=== PATIENT | female | born 1975 ===

== ENCOUNTER 2017-08-03 17:37 | Emergency (ER) | payer MEDICAID ==
[2017-08-03 17:37] VITALS: BMI 29.0
[2017-08-03 17:43] VITALS: BP 153/110; PULSE 85; RESP 18; TEMP 98.2; O2SAT 100
[2017-08-03] MEDS ORDERED: Sodium Chloride 0.9% 1,000 ML IV STA (18:15)
[2017-08-03] MEDS ORDERED: Morphine 4 MG/ML VIAL IV STA (18:15)
--- NOTE | 2017-08-03 18:18 | ED PDOC ---
HPI: Back Time Seen by Provider: 08/03/17 18:00 Chief Complaint (Nursing): Back Pain Chief Complaint (Provider): Back Pain History Per: Patient History/Exam Limitations: no limitations Onset/Duration Of Symptoms: Days (x6) Current Symptoms Are (Timing): Still Present Additional Complaint(s): 42 year old female who presents to the emergency department with a complaint of lower back pain ongoing for 6 days. Denied any fever, chills, difficulty urinating or bloody urine. Patient stated her urologist found kidney inflammation on an ultrasound 2 months ago with no known source. She has been taking Motrin with no relief of symptoms. PMD: none provided Past Medical History Reviewed: Historical Data, Nursing Documentation, Vital Signs Vital Signs: Last Vital Signs Temp 98.2 F 08/03/17 17:39 Pulse 85 08/03/17 17:39 Resp 18 08/03/17 17:39 BP 153/110 H 08/03/17 17:39 Pulse Ox 100 08/03/17 17:39 - Medical History PMH: No Chronic Diseases - Surgical History Surgical History: No Surg Hx, - Family History Family History: States: Unknown Family Hx - Home Medications Home Medications: Ambulatory Orders Medication Instructions Recorded No Known Home Meds 08/16/15 Tizanidine Hydrochloride 4 mg PO Q6 PRN #20 tab 08/16/15 [Tizanidine HCl] Tramadol Hydrochloride [Tramadol 50 mg PO Q6H PRN #20 tab 08/16/15 HCl] oxyCODONE/Acetaminophen [Percocet 1 ea PO Q6H PRN #15 tab 08/03/17 5/325 mg Tab] - Allergies Allergies/Adverse Reactions: Allergies Allergy/AdvReac Type Severity Reaction Status Date / Time No Known Allergies Allergy Verified 08/16/15 17:59 Review of Systems ROS Statement: Except As Marked, All Systems Reviewed And Found Negative Constitutional: Negative for: Fever, Chills Genitourinary Female: Negative for: Dysuria, Hematuria Musculoskeletal: Positive for: Back Pain (lower) Physical Exam - Reviewed Nursing Documentation Reviewed: Yes Vital Signs Reviewed: Yes - Physical Exam Appears: Positive for: Non-toxic, Uncomfortable Head Exam: Positive for: ATRAUMATIC, NORMAL INSPECTION, NORMOCEPHALIC Skin: Positive for: Normal Color Eye Exam: Positive for: Normal appearance ENT: Positive for: Normal ENT Inspection Neck: Positive for: Normal Cardiovascular/Chest: Positive for: Regular Rate, Rhythm, Chest Non Tender Respiratory: Positive for: Normal Breath Sounds. Negative for: Decreased Breath Sounds, Respiratory Distress Back: Positive for: Vertebral Tenderness (generalized lower back). Negative for : Normal Inspection, L CVA Tenderness, R CVA Tenderness Neurologic/Psych: Positive for: Alert (x3), Oriented - Laboratory Results Result Diagrams: 08/03/17 18:39 - ECG O2 Sat by Pulse Oximetry: 100 (RA) Pulse Ox Interpretation: Normal Medical Decision Making Medical Decision Making: Initial Impression: Lowe back pain Initial Plan: * CMP * CBC * Morphine 4mg IV * NS 1,000ml IV per 1,000mls/hr * Urine culture * Urinalysis Scribe Attestation: Documented by Felicia Navarro, acting as a scribe for Ольга Sánchez PA-C. Provider Scribe Attestation: All medical record entries made by the Scribe were at my direction and personally dictated by me. I have reviewed the chart and agree that the record accurately reflects my personal performance of the history, physical exam, medical decision making, and the department course for this patient. I have also personally directed, reviewed, and agree with the discharge instructions and disposition. Disposition - Clinical Impression Clinical Impression: Back pain - Patient ED Disposition Is Patient to be Admitted: No Counseled Patient/Family Regarding: Diagnosis, Need For Followup, Rx Given - Disposition Disposition: Routine/Home Disposition Time: 19:03 Condition: STABLE Prescriptions: oxyCODONE/Acetaminophen [Percocet 5/325 mg Tab] 1 ea PO Q6H PRN #15 tab PRN Reason: Pain, Severe (8-10) Instructions: Acute Low Back Pain (ED) Forms: [employer] (Hungarian)
[2017-08-03 18:43] LABS: RBC URINE 1 /hpf (0-3); URINE BACTERIA RARE (<OCC); URINE BILIRUBIN NEGATIVE (NEGATIVE); URINE BLOOD NEGATIVE (NEGATIVE); URINE COLOR STRAW (YELLOW); URINE GLUCOSE (UA) NEG (Normal); URINE KETONE NEGATIVE (NEGATIVE); URINE LEUKOCYTE ESTERASE NEG Leu/uL (Negative); URINE PROTEIN NEGATIVE (NEGATIVE); URINE UROBILINOGEN 0.2-1.0 mg/dL (0.2-1.0); WBC URINE < 1 /hpf (0-5)
[2017-08-03 18:47] LABS: HEMATOCRIT 37.5 % (34.0-47.0); MEAN CELL VOLUME 80.6 fl (81.0-99.0); MEAN CORPUSCULAR HEMOGLOBIN 25.7 pg (27.0-31.0); MEAN CORPUSCULAR HGB CONC 31.9 g/dL (33.0-37.0); RED CELL DISTRIBUTION WIDTH 14.2 % (11.5-14.5); WHITE BLOOD COUNT 9.8 K/uL (4.8-10.8)
[2017-08-03 18:53] LABS: ALKALINE PHOSPHATASE 53 U/L (38-126); ALT/SGPT 36 U/L (9-52); AST/SGOT 31 U/L (14-36); BILIRUBIN,TOTAL 0.4 mg/dl (0.2-1.3); BLOOD UREA NITROGEN 12 mg/dl (7-17); CALCIUM 9.2 mg/dL (8.4-10.2); CARBON DIOXIDE 26 mmol/L (22-30); CHLORIDE 105 mmol/L (98-107); GFR AFRICAN-AMERICAN > 60; GLUCOSE,RANDOM 81 mg/dL (65-105); POTASSIUM 3.5 MMOL/L (3.6-5.0); SODIUM 140 mmol/l (132-148); TOTAL PROTEIN 8.4 G/DL (6.3-8.2)
[2017-08-03 18:56] LABS: ALB/GLOB RATIO 1.1 (1.0-2.1)
[2017-08-03] MEDS ORDERED: Morphine 4 MG/ML VIAL ONE (18:57)
--- NOTE | 2017-08-03 19:08 | CT ---
PROCEDURE: CT Abdomen and Pelvis without intravenous contrast HISTORY: back pain, hx of "inflamed kidneys" COMPARISON: None. TECHNIQUE: Unenhanced study. Neither oral nor intravenous contrast administered. Sensitivity and specificity for acute inflammatory processes limited by the absence of oral and intravenous contrast. Less the diagnosis of pyelonephritis and ureteritis is limited with respect to sensitivity and specificity. Radiation dose: Total exam DLP = 1141.19 print mGy-cm. This CT exam was performed using one or more of the following dose reduction techniques: Automated exposure control, adjustment of the mA and/or kV according to patient size, and/or use of iterative reconstruction technique. FINDINGS: LOWER THORAX: Unremarkable. LIVER: Unremarkable. No gross lesion or ductal dilatation. GALLBLADDER AND BILE DUCTS: Unremarkable. PANCREAS: Unremarkable. No gross lesion or ductal dilatation. SPLEEN: Unremarkable. ADRENALS: Unremarkable. No mass. KIDNEYS AND URETERS: Unremarkable. No hydronephrosis. No solid mass. VASCULATURE: Unremarkable. No aortic aneurysm. BOWEL: Unremarkable. No obstruction. No gross mural thickening. APPENDIX: Unremarkable. Normal appendix. PERITONEUM: Unremarkable. No free fluid. No free air. LYMPH NODES: Unremarkable. No enlarged lymph nodes. BLADDER: Unremarkable. REPRODUCTIVE: Unremarkable anteverted uterus. Questionable follicular cyst left hemipelvis. BONES: No acute fracture. OTHER FINDINGS: None. IMPRESSION: No significant or acute findings to account for/ related to the clinical presentation. Additional benign and/or incidental findings described above.
== END 2017-08-03 19:36 | disposition home or self-care (01) ==
LOC: H.ER 17:37
DX: M54.5 Low back pain (principal)
CPT/HCPCS: 74176; 80053; 81003; 81025; 85027; 87086; 96374; 99282; J2270; J7040

== ENCOUNTER 2017-09-05 18:34 | Emergency (ER) | payer MEDICAID ==
[2017-09-05 18:34] VITALS: BMI 29.0
[2017-09-05 18:39] VITALS: O2SAT 100
[2017-09-05 20:33] LABS: BASO % 0.5 % (0.0-2.0); EOS % 0.4 % (0.0-4.0); HEMOGLOBIN 11.8 g/dL (12.0-16.0); LYMPH # 1.6 K/uL (1.0-4.3); LYMPH % 24.3 % (20.0-40.0); MEAN CORPUSCULAR HEMOGLOBIN 25.3 pg (27.0-31.0); MEAN CORPUSCULAR HGB CONC 31.6 g/dL (33.0-37.0); MONO # 0.5 K/uL (0.0-0.8); MONO % 7.3 % (0.0-10.0); NEUT # 4.5 K/uL (1.8-7.0); NEUT % 67.5 % (50.0-75.0); RBC 4.66 Mil/uL (3.80-5.20); RED CELL DISTRIBUTION WIDTH 14.7 % (11.5-14.5); WHITE BLOOD COUNT 6.7 K/uL (4.8-10.8)
--- NOTE | 2017-09-05 20:33 | ED PDOC ---
HPI: Hypertension/Hypotension Time Seen by Provider: 09/05/17 19:11 Chief Complaint (Nursing): Chest Pain Chief Complaint (Provider): Vomiting and HTN History Per: Patient History/Exam Limitations: no limitations Onset/Duration Of Symptoms: Days (x2) Current Symptoms Are (Timing): Still Present Additional Complaint(s): 42 year old female with a past medical history of HTN in and preeclampsia, who presents to the ED with vomiting and HTN x2 days. Reports that she developed body aches and fatigue with associated left chest and shoulder pain yesterday. States chest and shoulder pain have since resolved. States she is concerned after a home blood pressure reading of 198/111. Denies HTN when not . Also reports that shes been very stressed recently because she has 2 children, is a single mother, and has had financial issues. Denies stomach pain and reports some midline back pain. PMD: martin Schofield Past Medical History Reviewed: Historical Data, Nursing Documentation, Vital Signs Vital Signs: Last Vital Signs Temp 98.5 F 09/05/17 18:37 Pulse 85 09/05/17 18:37 Resp 16 09/05/17 18:37 BP 143/95 H 09/05/17 18:37 Pulse Ox 100 09/05/17 18:37 - Medical History PMH: HTN (in ) Other PMH: Preeclampsia - Surgical History Surgical History: Other surgeries: TMJ surgery - Family History Family History: States: Hypertension - Home Medications Home Medications: Ambulatory Orders Medication Instructions Recorded No Known Home Meds 08/16/15 Tizanidine Hydrochloride 4 mg PO Q6 PRN #20 tab 08/16/15 [Tizanidine HCl] Tramadol Hydrochloride [Tramadol 50 mg PO Q6H PRN #20 tab 08/16/15 HCl] oxyCODONE/Acetaminophen [Percocet 1 ea PO Q6H PRN #15 tab 08/03/17 5/325 mg Tab] Ondansetron ODT [Zofran ODT] 1 odt PO Q6 PRN #20 odt 09/05/17 - Allergies Allergies/Adverse Reactions: Allergies Allergy/AdvReac Type Severity Reaction Status Date / Time No Known Allergies Allergy Verified 09/05/17 18:37 Review of Systems ROS Statement: Except As Marked, All Systems Reviewed And Found Negative (as per HPI) Physical Exam - Reviewed Nursing Documentation Reviewed: Yes Vital Signs Reviewed: Yes - Physical Exam Appears: Positive for: Non-toxic, In Acute Distress (tearful) Head Exam: Positive for: ATRAUMATIC, NORMOCEPHALIC Skin: Positive for: Warm, Dry Eye Exam: Positive for: EOMI, PERRL ENT: Negative for: Pharyngeal Erythema, Tonsillar Exudate Neck: Positive for: Painless ROM, Supple Cardiovascular/Chest: Positive for: Regular Rate, Rhythm. Negative for: Murmur Respiratory: Positive for: Normal Breath Sounds. Negative for: Wheezing Gastrointestinal/Abdominal: Positive for: Soft. Negative for: Tenderness Back: Positive for: Normal Inspection. Negative for: Decreased ROM Extremity: Positive for: Normal ROM. Negative for: Deformity Lymphatic: Negative for: Adenopathy Neurologic/Psych: Positive for: Alert, Mood/Affect (anxious mood, sad affect, denies suicidal ideation). Negative for: Motor/Sensory Deficits - Laboratory Results Result Diagrams: 09/05/17 20:15 09/05/17 20:15 - ECG O2 Sat by Pulse Oximetry: 100 (RA) Pulse Ox Interpretation: Normal Medical Decision Making Medical Decision Making: Time: 20:15 Initial Impression: HTN. Differentials include electrolyte abnormalities, , stress, and anxiety Plan: --EKG --BNP --CMP --Magnesium --Phosphorus --TSH --Troponin I --ED urine dipstick --ED urine --CBC w/ differential --D Dimer --Chest X-Ray 2 views --Reevaluation Accession No. 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 no. Patient Name: HILDA MCCORMICK Pt. Address: [address] [place] [address]. Rec #: [id number] [place] [address]: Ruddy AWAD, Katarzyna Cartwright Pt Order Location: [facility] : 1975 Female Age: 42 Order #: [id number] Reason for exam: chest pain CT Scan ANGIO CHEST PE PROTOCOL Exam Date: 09/05/17 This imaging exam was performed at [facility] EXAM: CT Angiography Chest With Intravenous Contrast CLINICAL HISTORY: 42 years old, female; Pain; Chest pain; Left-sided chest pain TECHNIQUE: Axial computed tomographic angiography images of the chest with intravenous contrast using pulmonary embolism protocol. All CT scans at this facility use one or more dose reduction techniques, viz.: automated exposure control; ma/kV adjustment per patient size (including targeted exams where dose is matched to indication; i.e. head); or iterative reconstruction technique. MIP reconstructed images were created and reviewed. Coronal and sagittal reformatted images were created and reviewed. CONTRAST: 90 mL of [id number] administered intravenously. COMPARISON: No relevant prior studies available. FINDINGS: Limitations: Suboptimal timing of bolus. Pulmonary arteries: No definite pulmonary embolism. Aorta: No aneurysm. No dissection. Lungs: No consolidation. 0.3 cm RIGHT middle lobe nodule. Pleural space: No significant effusion. No pneumothorax. Heart: No cardiomegaly. No significant pericardial effusion. Bones/joints: No acute fracture. Soft tissues: Unremarkable. Lymph nodes: No pathologically enlarged lymph nodes. IMPRESSION: 1. No definite CT evidence of pulmonary embolism. 2. Pulmonary nodules. For low-risk patients, no follow-up is necessary. For high-risk patients (smoking history or other known risk factors) an optional CT at 12 months could be performed. Dictated By: Tacho Navarrete MD Dictated Date/Time: 09/05/172225 Signed By: Tacho Navarrete MD Date Signed: 2225 Transcribed By: CRISPIN Transcribe Date/Time : 09/05/172225 [id number] 1045p Labs unremarkable Pt feels better, bp improved without intervention. Scribe Attestation: Documented by Chuck Ramos, acting as a scribe for Katarzyna Fox MD. Provider Scribe Attestation: All medical record entries made by the Scribe were at my direction and personally dictated by me. I have reviewed the chart and agree that the record accurately reflects my personal performance of the history, physical exam, medical decision making, and the department course for this patient. I have also personally directed, reviewed, and agree with the discharge instructions and disposition. Disposition - Clinical Impression Clinical Impression: Vomiting, Hypertension, Stress Counseled Patient/Family Regarding: Studies Performed, Diagnosis, Need For Followup, Rx Given - Disposition Referrals: Martin Schofield MD [IM] - 09/06/17 ([facility] [Outside] Disposition: Routine/Home Disposition Time: 22:50 Condition: IMPROVED Prescriptions: Ondansetron ODT [Zofran ODT] 1 odt PO Q6 PRN #20 odt PRN Reason: Nausea/Vomiting Instructions: Stress (ED), Acute Nausea and Vomiting (ED) Forms: [facility] ED School/Work Excuse Print Language: CHILEAN
[2017-09-05 20:41] LABS: ALB/GLOB RATIO 1.1 (1.0-2.1); ALBUMIN 4.1 g/dL (3.5-5.0); ALT/SGPT 32 U/L (9-52); AST/SGOT 26 U/L (14-36); BLOOD UREA NITROGEN 15 mg/dl (7-17); CALCIUM 9.2 mg/dL (8.4-10.2); GFR AFRICAN-AMERICAN > 60; GFR NON-AFRICAN AMERICAN > 60
[2017-09-05 20:50] LABS: B-TYPE NATRIURETIC PEPTIDE 17.7 pg/ml (0-450)
[2017-09-05] MEDS ORDERED: Iodixanol 320 MG/ML 100 ML BOTTLE IV ONE (21:17)
[2017-09-05] MEDS ORDERED: Sodium Chloride 0.9% 50 ML IV ONE (21:18)
--- NOTE | 2017-09-05 22:27 | CT ---
EXAM: CT Angiography Chest With Intravenous Contrast CLINICAL HISTORY: 42 years old, female; Pain; Chest pain; Left-sided chest pain TECHNIQUE: Axial computed tomographic angiography images of the chest with intravenous contrast using pulmonary embolism protocol. All CT scans at this facility use one or more dose reduction techniques, viz.: automated exposure control; ma/kV adjustment per patient size (including targeted exams where dose is matched to indication; i.e. head); or iterative reconstruction technique. MIP reconstructed images were created and reviewed. Coronal and sagittal reformatted images were created and reviewed. CONTRAST: 90 mL of [id number] administered intravenously. COMPARISON: No relevant prior studies available. FINDINGS: Limitations: Suboptimal timing of bolus. Pulmonary arteries: No definite pulmonary embolism. Aorta: No aneurysm. No dissection. Lungs: No consolidation. 0.3 cm RIGHT middle lobe nodule. Pleural space: No significant effusion. No pneumothorax. Heart: No cardiomegaly. No significant pericardial effusion. Bones/joints: No acute fracture. Soft tissues: Unremarkable. Lymph nodes: No pathologically enlarged lymph nodes. IMPRESSION: 1. No definite CT evidence of pulmonary embolism. 2. Pulmonary nodules. For low-risk patients, no follow-up is necessary. For high-risk patients (smoking history or other known risk factors) an optional CT at 12 months could be performed.
[2017-09-05 22:47] VITALS: BP 121/73; PULSE 63; RESP 18; TEMP 98.4
--- NOTE | 2017-09-06 11:32 | RAD ---
HISTORY: Left chest pressure COMPARISON: No prior. TECHNIQUE: Chest PA and lateral FINDINGS: LUNGS: No active pulmonary disease. PLEURA: No significant pleural effusion identified. No pneumothorax apparent. CARDIOVASCULAR: Normal. OSSEOUS STRUCTURES: No significant abnormalities. VISUALIZED UPPER ABDOMEN: Normal. OTHER FINDINGS: None. IMPRESSION: No active disease.
--- NOTE | 2017-09-06 14:22 | CARD ---
APPROVED REPORT EKG Measurement Heart [id number] <Conclusion> Normal sinus rhythm Normal ECG
== END 2017-09-06 05:47 | disposition home or self-care (01) ==
LOC: H.ER 18:34
DX: I10 Essential (primary) hypertension (principal)
CPT/HCPCS: 71046; 71275; 80053; 81025; 83735; 83880; 84100; 84443; 84484; 85025; 85378; 93005; 99282; Q9967

== ENCOUNTER 2018-12-04 09:09 | Emergency (ER) | payer MEDICAID ==
[2018-12-04 09:09] VITALS: BMI 29.0
[2018-12-04] MEDS ORDERED: DiphenhydrAMINE 50 mg/ml Inj IVP STA (09:40)
[2018-12-04] MEDS ORDERED: Sodium Chloride 0.9% 1,000 ML IV STA (09:40)
[2018-12-04] MEDS ORDERED: DiphenhydrAMINE 50 mg/ml Inj ONE (09:46)
[2018-12-04 10:22] LABS: BASO % 0.6 % (0.0-2.0); EOS % 0.5 % (0.0-4.0); HEMOGLOBIN 10.7 g/dL (12.0-16.0); LYMPH # 1.4 K/uL (1.0-4.3); MEAN CELL VOLUME 73.7 fl (81.0-99.0); MEAN CORPUSCULAR HEMOGLOBIN 23.3 pg (27.0-31.0); MEAN CORPUSCULAR HGB CONC 31.6 g/dL (33.0-37.0); MEAN PLATELET VOLUME 10.1 fl (7.2-11.7); MONO # 0.3 K/uL (0.0-0.8); MONO % 6.6 % (0.0-10.0); NEUT # 3.4 K/uL (1.8-7.0); NEUT % 65.3 % (50.0-75.0); NRBC % 0.1 % (0.0-0.0); RBC 4.6 Mil/uL (3.80-5.20); RED CELL DISTRIBUTION WIDTH 15.8 % (11.5-14.5); WHITE BLOOD COUNT 5.2 K/uL (4.8-10.8)
[2018-12-04 10:36] LABS: ALB/GLOB RATIO 1.2 (1.0-2.1); ALBUMIN 4.5 g/dL (3.5-5.0); ALT/SGPT 31 U/L (9-52); AST/SGOT 28 U/L (14-36); BLOOD UREA NITROGEN 10 mg/dl (7-17); CALCIUM 9.6 mg/dL (8.4-10.2); GFR NON-AFRICAN AMERICAN > 60
[2018-12-04 10:48] VITALS: RESP 19; O2SAT 98
--- NOTE | 2018-12-04 11:17 | ED PDOC ---
HPI: Allergic Reaction Time Seen by Provider: 12/04/18 09:20 Chief Complaint (Nursing): Abnormal Skin Integrity History Per: Patient (Rubin is here because of itchy rashes that started yesterday afternoon. She took Benadryl 25mg with some relief. They recurred this morning and caused her to be alarmed. As a result, she noted palpitations but denies shortness of breath or difficulty swallowing.) Past Medical History Reviewed: Historical Data Vital Signs: Last Vital Signs Temp 97 F L 12/04/18 10:47 Pulse 64 12/04/18 10:47 Resp 19 12/04/18 10:47 BP 125/76 12/04/18 10:47 Pulse Ox 98 12/04/18 10:47 RINA Report Viewed: No - Medical History PMH: HTN (in ) - Surgical History Surgical History: No Surg Hx, - Family History Family History: States: No Known Family Hx, Hypertension - Home Medications Home Medications: Ambulatory Orders Medication Instructions Recorded No Known Home Meds 08/16/15 Tizanidine Hydrochloride 4 mg PO Q6 PRN #20 tab 08/16/15 [Tizanidine HCl] Tramadol Hydrochloride [Tramadol 50 mg PO Q6H PRN #20 tab 08/16/15 HCl] oxyCODONE/Acetaminophen [Percocet 1 ea PO Q6H PRN #15 tab 08/03/17 5/325 mg Tab] Ondansetron ODT [Zofran ODT] 1 odt PO Q6 PRN #20 odt 09/05/17 DiphenhydrAMINE [Benadryl] 50 mg PO Q6H PRN #50 cap 12/04/18 Famotidine [Pepcid] 20 mg PO BID #30 tab 12/04/18 - Allergies Allergies/Adverse Reactions: Allergies Allergy/AdvReac Type Severity Reaction Status Date / Time No Known Allergies Allergy Verified 09/05/17 18:37 Review of Systems ROS Statement: Except As Marked, All Systems Reviewed And Found Negative Constitutional: Negative for: Fever, Chills Cardiovascular: Positive for: Chest Pain Respiratory: Negative for: Cough, Shortness of Breath, SOB with Exertion Gastrointestinal: Negative for: Nausea, Vomiting, Abdominal Pain, Diarrhea Genitourinary Female: Negative for: Dysuria Physical Exam - Reviewed Nursing Documentation Reviewed: Yes Vital Signs Reviewed: Yes - Physical Exam Appears: Positive for: Well, Non-toxic, No Acute Distress Head Exam: Positive for: ATRAUMATIC, NORMAL INSPECTION, NORMOCEPHALIC Skin: Positive for: Normal Color, Warm, Rash (scattered mildly indurated/urticarial lesions most prominent on the right upper lip. ) Eye Exam: Positive for: EOMI, Normal appearance, PERRL ENT: Positive for: Normal ENT Inspection Neck: Positive for: Normal, Painless ROM Cardiovascular/Chest: Positive for: Regular Rate, Rhythm Respiratory: Positive for: CNT, Normal Breath Sounds Gastrointestinal/Abdominal: Positive for: Normal Exam, Soft Back: Positive for: Normal Inspection Extremity: Positive for: Normal ROM Neurological/Psych: Positive for: Awake, Alert, Normal Tone - Laboratory Results Result Diagrams: 12/04/18 10:00 12/04/18 10:00 Lab Results: Total Bilirubin 0.4 mg/dl (0.2-1.3) 12/04/18 10:00 AST 28 U/L (14-36) 12/04/18 10:00 ALT 31 U/L (9-52) 12/04/18 10:00 Alkaline Phosphatase 54 U/L (38-126) 12/04/18 10:00 Total Protein 8.4 G/DL (6.3-8.2) H 12/04/18 10:00 Albumin 4.5 g/dL (3.5-5.0) 12/04/18 10:00 Globulin 3.8 gm/dL (2.2-3.9) 12/04/18 10:00 Albumin/Globulin Ratio 1.2 (1.0-2.1) 12/04/18 10:00 - ECG O2 Sat by Pulse Oximetry: 98 Disposition - Clinical Impression Clinical Impression: Allergic reaction - Patient ED Disposition Is Patient to be Admitted: No Doctor Will See Patient In The: Office Counseled Patient/Family Regarding: Diagnosis - Disposition Disposition: Routine/Home Disposition Time: 11:00 Condition: IMPROVED Prescriptions: DiphenhydrAMINE [Benadryl] 50 mg PO Q6H PRN #50 cap PRN Reason: Itching / Pruritus Famotidine [Pepcid] 20 mg PO BID #30 tab Instructions: Hives Forms: [employer] (Indonesian), [facility] ED School/Work Excuse Print Language: SINHALA - POA Present On Arrival: None
[2018-12-04 11:22] VITALS: BP 128/78; PULSE 78; TEMP 97.7
== END 2018-12-04 11:23 | disposition home or self-care (01) ==
LOC: H.ER 09:09
DX: T78.40XA Allergy, unspecified, initial encounter (principal); I10 Essential (primary) hypertension
CPT/HCPCS: 80053; 81025; 85025; 96374; 96375; 99283; J1200; J7030